=== PATIENT | female | born 1980 | race Caucasian/White ===

== ENCOUNTER 2025-03-27 23:16 | Emergency (ER) | payer OTHER, SELFPAY ==
--- OUTSIDE RECORDS SUMMARY | 2025-03-27 23:18 | XMS_ITS | Clinical Summary ---
Author Organization [facility] [employer] [facility] Address [address] [place] [id number] Care Team Providers Care Audioprosthologist Name Role Phone Elizabeth Malcolm DO Primary Care Provider [phone] Allergies Active Allergy Reactions Criticality Noted Date Comments Sulfa (Sulfonamide Antibiotics) Rash 09/26/2013 Patient reports I turn purple all over Medications multivitamin (MVI) tablet Take 1 tablet by mouth once daily. 0 9 Active ketoconazole 2% topical (NIZORAL) creamIndications:I tching Apply topically to affected area(s) once daily. 60 g 9 Active FLUoxetine (PROZAC) 60 mg tabletIndications: Depression, recurrent,Fibromya lgia Take 1 Tablet (60 mg) by mouth once daily. 90 Tablet 3 4 Active hydroCHLOROthiazid e 25 mg tabletIndications: HTN (hypertension) Take 1 Tablet (25 mg) by mouth once daily. 90 Tablet 3 4 Active amLODIPine (NORVASC) 10 mg tabletIndications: HTN (hypertension) Take 1 Tablet (10 mg) by mouth once daily. 90 Tablet 3 4 Active levonorgestrel-eth inyl estrad, 0.1mg-20mcg, (Vienva) 0.1-20 mg-mcg tabletIndications: Encounter for surveillance of contraceptive pills Take 1 Tablet by mouth once daily. 84 Tablet 3 4 Active Active Problems Problem Noted Date Diagnosed Date Pap smear for cervical cancer screening 07/31/19 23 Overview (07/31/2022): 06/2022 NIL/ HPV negative Plan: Pap/ HPV due 06/2027 HTN (hypertension) 10/30/2019 History of ITP 04/04/2016 Overview (04/04/2016): No problems for >10yrs. Normal platelets with last delivery 02/2015. Migraines 08/14/2014 Fibromyalgia 08/14/2014 Resolved Problems Problem Noted Date Diagnosed Date Resolved Date care, subsequent pr egnancy in first trimester 04/03/2016 03/01/2018 Overview (06/30/2016): MMR after delivery Needs Pap smear at 6wk visit. It's a boy! Spontaneous vaginal delivery 02/18/2015 03/01/2018 37+ weeks gestation completed 02/18/2015 03/01/2018 Chorioamnionitis, delivered, current hospitalization 02/17/2015 03/01/2018 Full-term PROM with onset of labor more than 24 hours after rupture 02/15/2015 03/01/2018 Overview (02/15/2015): remote history of ITP in high school Thrombocytopenia affecting p regnancy, antepartum 02/15/2015 02/15/2015 , normal first 08/01/201402/10 Overview (02/13/2015): It's a girl! TdaP 12/13/14 GBS negative Plans to breastfeed. Wants to try on her own and ask for help if needed. Wants baby taken to warmer initially then to chest. Monitor closely for s/s depression, plan start sertraline in hospital , plan q2wk visits Idiopathic thrombocytopenic purpura (ITP) 07/12/1994 07/12/2004 Immunizations Immunization Administration Dates Next Due Influenza, IIV4 05/31/2022,,03/05/2020,04/03/2019,06/07/2018,,04/03/2016,09/05/2015,05/24/2014,06/23/2013,2011 MMR 10/17/2016 Tdap 08/14/2016,12/13/2014,05/30/2010 ,05/20/2010 Tdap, Unspecified 05/30/2010 Family History Medical History Relation Name Comments Heart Disease Father Heart Disease Maternal Grandfather Diabetes Mother Psychiatric illness Mother Relation Name Status Comments Father Maternal Grandfather Mother Social History Tobacco Use Types Packs/Day Years Used Date Smoking Tobacco: Never Smokeless Tobacco: Never Tobacco Cessation:Counseling Given: Not Answered Alcohol Use Standard Drinks/Week Comments Yes 12 (1 standard drink = 0.6 oz pu re alcohol) PHQ-2 Answer Date Recorded PHQ-2 TOTAL SCORE 2 05/10/2024 Social Connections Answer Date Recorded Do you often feel lonely or isolated from those around you? 4 05/06/2024 Alcohol Use Answer Date Recorded How often do you have a drink containing alcohol ? 4 06/29/2022 How many drinks containing a lcohol do you have on a typical day when you are drinking? 1 06/29/2022 How often do you have five or more drinks on one occasion? 3 06/29/2022 Financial Resource Strain Answer Date R ecorded Difficulty of Paying Living Expenses 2 05/06/2024 Difficulty of Paying Living Expenses 1 05/06/2024 Food Insecurity Answer Date Recorded Do you worry your food will run out before you are able to buy more? 1 05/06/2024 Transportation Needs Answer Date Record ed Does lack of transportation keep you from medica l appointments? 1 05/06/2024 Does lack of transportation keep you from work, meetings or getting things that you need? 1 05/06/2024 Housing Stability Answer Date Recorded What is your housing situation today? 1 05/06/2024 Utilities Answer Date Recorded Do you have trouble paying f or utilities (for example, heat, electricity, water, phone)? 1 05/06/2024 Comments No Sex and Gender Information Value Date Recorded Sex Assigned at Not on file Legal Sex Female 2:57 PM CDT Gender Identity Not on file Sexual Orientation Straight 08/10/2023 3: 57 PM [employer]HOUSE [employer] Obstetrics History Para Term AB IAB SAB Ectopic Multiple Livin g Live Births 2 1 1 2 2 Date Outcome GA Total Labor Labor/2nd/3rd Weight Sex Type Anes PTL Liliya A1 A5 Name Clin F Vag Epidur al N Livin g Complications:Intraamniotic Infection 017 Term 39w 1d Livin g Last Filed Vital Signs Vital Sign Reading Time Taken Comments Blood Pressure 135/85 05/10/2024 2:51 PM CDT Pulse 95 05/10/2024 2:25 PM CDT Temperature 36.6 C (97.9 F) 07/18/2019 10:47 AM [employer]HOUSE [employer] Respiratory Rate 16 11/30/2017 2:23 PM CDT Oxygen Saturation 98% 05/10/2024 2:25 PM CDT Inhaled Oxygen Concentration - - Weight 74.4 kg (164 lb) 05/10/2024 2:25 PM CDT Height 163.8 cm (5' 4.5) 05/10/2024 2:25 PM CDT Body Mass Index 27.72 05/10/2024 2:25 PM CDT Plan of Treatment Health Maintenance Due Date Last Done Comments Hepatitis B series for 19+ (1 of 3 - 19+ 3-dose series) 2001 HPV series for age 9-45 (1 - 3-dose SCDM series) 2009 COVID-19 vaccine series (2023- season) 2025 Influenza Vaccine (#1) 2025 , 06/17/2021, 03/05/2020, Additional history exists BMI (ht and wt on same day) for age 18+ 05/10/2025 05/10/2024, 06/29/2022, 06/17/2021, Additional history exists Depression screening for age 12+ 05/10/2025 05/10/2024, 08/24/2022, 07/13/2022, Additional history exists Tetanus booster 08/14/2026 08/14/2016, 06/0 10/2014, 05/30/2010, Additional history exists Pap test for age 21-65 06/29/2027 , 06/29/2022, 12/02/2016, Additional history exists RSV vaccine for adults or (1 - 1-dose 75+ series) 2057 Hepatitis C screening for age 18-79 Completed 06/18/2014 HIV for age 15-65 Completed 02/23/2019, , 06/18/2014 Pneumococcal series for age 6-49 Aged Out No longer eligible based on patient's age to complete this topic Procedures Procedure Name Priority Date/Time Associated Diagnosis Comments STATE COMPTROLLER THIN PREP PAP SCREEN IMAGED Routine 06/29/2022 3:25 PM [employer]OWERHOUSE [employer] Screening for cervical cancer ANTI HIV 1/2 Add On 02/23/2019 9:27 AM CDT Pruritus ANTI HCV Routine 06/18/2014 9:01 AM POWERHOUSE LAB[employer]ER (HC) from Last 3 Months or Most Recently Relevant to Health Maintenance Results * STATE COMPTROLLER THIN PREP PAP SCREEN IMAGED (06/29/2022 3:25 PM POWERHOUSE LABORER) Case Report Gynecologic Cytology Report Case: [id number] Authorizing Provider: Elizabeth Malcolm DO Collected: 06/29/2022 1525 Ordering Location: [facility] Received: 06/29/2022 1525 Clinic First Screen: Mark Monroe Rescreen: Kathleen Weiss Specimen: STATE COMPTROLLER ThinPrep Vial Screening, Cervical 07/16/2022 12:09 PM POWERHOUSE [employer] [facility] INTERPRETATION/ RESULT NEGATIVE FOR INTRAEPITHELIAL LESION OR MALIGNANCY (NIL) (none) 07/16/2022 12:09 PM POWERHOUSE [employer] [facility] at 1209 POWERHOUSE [employer]ER SPECIMEN ADEQUACY Satisfactory for evaluation Endocervical component present 07/16/2022 12:09 PM P[employer]HOU[employer] [facility] HPV REQUEST HPV and PAP 07/16/2022 12:09 PM P[employer]HOUSE [employer] [facility] Date of LMP 06/25/22 07/16/2022 12:09 PM [employer]HOU[employer] [facility] Last Pap Date 12/02/16 07/16/2022 12:09 PM P[employer]HOU[employer] [facility] Last Pap Result NIL 12:09 PM P[employer]HOU[employer] [facility] Abnormal Pap or [place] Bx in last 5 years No 07/16/2022 12:09 PM P[employer]HOU[employer] [facility] Menstrual Status Regular Periods 07/16/2022 12:09 PM P[employer]HOUSE [employer] [facility] [place] Bx Done Today No 07/16/2022 12:09 PM POWERHOUSE LAB[employer]ER [facility] Additional Information None given 07/16/2022 12:09 PM POWERHOUSE LAB[employer]ER [facility] Comment: Cytology is screened at [facility] - [address], [place] [address] and [facility] - [address] [place] [address], [place] [address] and [facility] - [address] [place] [address] Interpreted at [facility] - [address], [place] [address] Automated Review Successful 07/16/2022 12:09 PM POWERHOUSE LABORER [facility] Comment:Specimen processed s uccessfully by automated foreign law consultant device, ThinPrep Imaging System, [employer] ANCILLARY TESTING STATE COMPTROLLER HPV Ordered, Please see separate report 07/16/2022 12:09 PM POWERHOUSE LAB[employer]ER [facility] Note The pap test is a screening technique, not a diagnostic procedure. It is used primarily to screen for squamous cancers and precursor lesions. Published studies have shown that it is subject to both false negative and false positive results. The pap test should not be used as the sole means to diagnose or exclude pre-malignant and malignant lesions. 07/16/2022 12:09 PM POWERHOUSE LABORER [facility] Other (Cervical) Non-Blood / Unknown 06/29/2022 3:25 PM POWERHOUSE LAB[employer]ER 06/29/2022 3:25 PM POWERHOUSE [employer]ER Elizabeth Malcolm DO PATHOLOGY/CYTOLOGY Final R esult [facility] [address] [place] [address], [place] * ANTI HIV 1/2 (02/23/2019 9:27 AM CDT) HIV-1/HIV-2 ANTIBODY Non-Reacti ve Non-Reacti ve 02/28/2019 10:29 AM CDT [facility] Comment:HIV-1 p24 and HIV-1/ HIV-2 Ab not detected. Blood BLOOD SPECIMEN / Unknown Venipuncture / Unknown 02/23/2019 9:27 AM CDT 02/23/2019 9:27 AM CDT Elizabeth Malcolm DO SEND OUTS Final Resu lt [facility] [address] [place] [address], * ANTI HCV (06/18/2014 9:01 AM POWERHOUSE LABORER) HEPATITIS C ANTIBODY Non-Reacti ve Non-Reacti ve 06/18/2014 2:07 PM POWERHOUSE LABORER [facility] Blood specimen (specimen) BLOOD SPECIMEN / Unknown Venipuncture / Unknown 06/18/2014 9:01 AM POWERHOUSE LABORER 06/18/2014 9:02 AM POWERHOUSE LAB[employer]ER Narrative [facility] - 06/18/2014 2:07 PM POWERHOUSE LABORER Antibodies to HCV not detected; does not exclude the possibility of exposure to HCV. Radhika MCDONALD SEND OUTS Final R esult Performing Organization Address City/[facility]/ZIP Co de Phone Number [facility] 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
[2025-03-27 23:23] VITALS: BP 128/78; PULSE 111; RESP 20; TEMP 37.2; O2SAT 97; BMI 27.5
--- NOTE | 2025-03-27 23:23 | ED.GENADULT ---
HPI - General Adult General Time Seen by Provider: 23:23 Date Seen: 03/27/25 Chief complaint: Abdominal Pain Stated complaint: right side pain Time Seen by Provider: 03/27/25 23:22 Source: patient, RN notes reviewed and old records reviewed Mode of arrival: ambulatory Limitations: no limitations History of Present Illness HPI narrative: 45-year-old female who presents today with ?right side pain?. Says it hurts under entire right side from her chest to her head. This started about an hour and half before coming emergency department. No nausea, vomiting, diarrhea, fevers or chills. No shortness of breath or cough. Denies fall or injury. Did not take anything for this at home including Tylenol or ibuprofen. Related Data Home Medications ?Medication ?Instructions ?Recorded ?Confirmed amlodipine 10 mg tablet 10 mg PO DAILY 04/12/24 04/12/24 fluoxetine 40 mg capsule 40 mg PO QAM 04/12/24 04/12/24 hydrochlorothiazide 25 mg tablet 25 mg PO DAILY 04/12/24 04/12/24 levonorgestrel-ethinyl estradiol 1 tab PO DAILY 04/12/24 04/12/24 0.1 mg-20 mcg tablet Allergies Allergy/AdvReac Type Severity Reaction Status Date / Time Sulfa (Sulfonamide Allergy Verified 03/27/25 23:23 Antibiotics) [facility] Social History Smoking Status: Never smoker Do you use any of these nicotine containing products: None Second hand tobacco smoke exposure: No How often do you have a drink containing alcohol: monthly or less How many standard drinks containing alcohol do you have on a typical day: 1 or 2 How often do you have six or more drinks on one occasion: Less than monthly AUDIT-C Alcohol total score: 2 Non-prescribed substance use: denies use service: No Exam Narrative: Exam Narrative: General: Well-developed and well-nourished, no acute distress Head: Atraumatic and normocephalic Eyes: Pupils are equal reactive, extraocular motions intact, conjunctiva clear ENT: External nose and ears are normal, posterior pharynx without erythema or exudate Neck: No midline cervical tenderness, full spontaneous range of motion the neck, trachea midline, no adenopathy Heart: Tachycardic but regular Lungs: Clear to auscultation bilaterally without wheezes or crackles Abdomen: Soft, nontender, nondistended with active bowel sounds Musculoskeletal: No tenderness, deformity, or edema Neurologic: Awake, alert, and oriented x3, no gross focal neurologic deficits, cranial nerves intact as tested Psych: Mood and affect are appropriate Skin: No rashes Const: Vital Signs, click to edit/add: Vital Signs - 24 hr 03/27/25 23:23 Temperature 99 F Pulse Rate [Pulse Oximeter] 111 H Respiratory Rate 20 Blood Pressure [Ri ght Upper Arm] 128/78 Pulse Oximetry 97 Oxygen Delivery Me thod Room Air Course Course ED Course: Reviewed prior urgent care visit from October 2024 which was for sore throat, fever, body aches, was treated with penicillin for presumed strep strep infection with no testing performed. Care complicated by history of hypertension and alcohol use tonight Patient seen examined, presents today with pain on the right side of her torso started 90 minutes prior to arrival, no treatment home, no associated symptoms. Although she says she has her pain on the entire right side, she is holding her right upper abdomen, no CVA tenderness, no abdominal tenderness. Consider kidney stone, cholelithiasis or acute cholecystitis. Patient is tachycardic, cannot PERC out, D-dimer is ordered. Toradol ordered for pain and will monitor. Imaging will be performed, CT PE study if D-dimer is positive, CT abdomen and pelvis if negative. Reevaluation(s) Time of Reevaluation #1: 00:27 Reevaluation #1: Patient with minimal improvement in pain after Toradol and so Dilaudid was ordered. Labs independently interpreted by me with normal CBC, hypokalemia with potassium 2.9 which will be replaced orally, slightly elevated glucose consistent with patient with recent oral intake, AST, ALT slightly elevated, normal lipase. Time of Reevaluation #2: 01:05 Reevaluation #2: Labs independently interpreted by me with negative D-dimer, CT abdomen and pelvis is ordered and pending. Time of Reevaluation #3: 01:22 Reevaluation #3: CT abdomen and pelvis with gastric distension, no evidence for acute cholecystitis or other acute intra-abdominal or intrathoracic findings. IMPRESSION: No acute intra-abdominal/pelvic abnormality, including CT evidence of acute cholecystitis, obstructive uropathy, or appendicitis. Vital Signs Vital signs: Initial Vital Signs Temperature 99 F 03/27/25 23:23 Temperature Source Temporal Artery Scan 03/27/25 23:23 Pulse Rate 111 H 03/27/25 23:23 Pulse Rhythm Regular 03/27/25 23:23 Respiratory Rate 20 03/27/25 23:23 Blood Pressure 128/78 03/27/25 23:23 Blood Pressure Mean 94 03/27/25 23:23 Blood Pressure Position Sitting 03/27/25 23:23 Pulse Oximetry 97 03/27/25 23:23 Oxygen Delivery Method Room Air 03/27/25 23:23 Vital Signs Temperature 99 F 03/27/25 23:23 Pulse Rate 111 H 03/27/25 23:23 Respiratory Rate 20 03/27/25 23:23 Blood Pressure 128/78 03/27/25 23:23 Pulse Oximetry 97 03/27/25 23:23 Oxygen Delivery Method Room Air 03/27/25 23:23 Temperature 99 F 03/27/25 23:23 Pulse Rate 111 H 03/27/25 23:23 Respiratory Rate 20 03/27/25 23:23 Blood Pressure 128/78 03/27/25 23:23 Pulse Oximetry 97 03/27/25 23:23 Oxygen Delivery Method Room Air 03/27/25 23:23 Medications Administered Medications: Discontinued Medications Generic Name Dose Route Start Last Admin Trade Name Freq PRN Reason Stop Dose Admin Hydromorphone HCl 0.5 mg 03/28/25 00:17 03/28/25 00:20 Hydromorphone 0.5 Mg/0.5 Ml Inj IVP 03/28/25 00:18 0.5 mg ONCE ONE Administration Sodium Chloride 1,000 mls @ 1,000 mls/hr 03/27/25 23:45 03/27/25 23:58 0.9 % Sodium Chloride 1000 Ml IV 03/28/25 00:44 1,000 mls/hr .Q1H ALISON Administration Potassium Chloride 10 meq in 100 mls @ 100 mls/hr 03/28/25 00:28 03/28/25 00:45 Potassium Chloride IVPB 03/28/25 01:27 100 mls/hr ONCE ONE Administration Ketorolac Tromethamine 15 mg 03/27/25 23:40 03/27/25 23:57 Ketorolac 15 Mg/Ml Inj IVP 03/27/25 23:41 15 mg ONCE ONE Administration Potassium Bicarbonate 25 meq 03/28/25 00:28 03/28/25 00:40 Potassium Bicarb 25 Meq Effervescent Tab PO 03/28/25 00:29 25 meq ONCE ONE Administration Medical Decision Making Lab Data Labs: Lab Results 03/27/25 03/27/25 03/27/25 Range/Units 23:32 23:33 23:55 WBC 10.76 (4.50-11.00) K/uL RBC 4.34 (4.00-5.20) m/uL Hgb 14.3 (12.0-16.0) gm/dL Hct 40.8 (33.0-51.0) % MCV 94 (80-100) fL MCH 33 (26-34) pg MCHC 35 (32-36) gm/dL RDW Coeff of Candida 11.9 (11.5-15.5) % Plt Count 363 (140-440) K/uL Neut % (Auto) 68.6 (42.0-72.0) % Lymph % (Auto) 22.8 (20-44) % Forrest % (Auto) 7.0 (0.0-11.0) % Eos % (Auto) 0.8 (0.0-7.0) % Baso % (Auto) 0.1 (0.0-3.0) % Neut # (Auto) 7.38 H (1.7-7.0) K/uL Lymph # (Auto) 2.45 (0.90-2.90) K/uL Forrest # (Auto) 0.80 (0.00-0.90) K/UL Eos # (Auto) 0.09 (0.00-0.50) K/uL Baso # (Auto) 0.01 (0.00-0.30) K/uL Abs Immat Gran (auto) 0.08 (0.00-0.30) K/uL Imm/Tot Granulo (auto) 0.7 % D-Dimer Quant (PE/DVT) < 0.27 (0.00-0.50) ug/ml Sodium 137 (135-149) mmol/L Potassium 2.9 L* (3.6-5.1) mmol/L Chloride 95 L (96-114) mmol/L Carbon Dioxide 26 (20-32) mmol/L Anion Gap 16 H (7-15) mEq/L BUN 8 (5-24) mg/dL Creatinine 0.7 (0.5-1.5) mg/dL Estimated Creat Clear 89.48 Estimated GFR 110 ml/min Glucose 131 H (60-115) mg/dL Calcium 9.9 (8.4-10.6) mg/dL Magnesium 1.9 (1.5-2.6) mg/dL Total Bilirubin 0.7 (0.1-1.5) mg/dL Direct Bilirubin 0.2 (0.0-0.5) mg/dL AST 50 H (12-35) U/L ALT 54 H (4-35) U/L Alkaline Phosphatase 54 (40-150) U/L Total Protein 8.4 H (6.0-8.3) g/dL Albumin 4.9 (3.3-5.0) g/dL Lipase 249 (23-300) U/L Urine Color Yellow (Yellow) Urine Appearance Cloudy A (Clear) Urine pH 7.0 (5.0-8.5) Ur Specific [place] 1.015 (1.000-1.030) Urine Protein Negative (Negative) Urine Glucose (UA) Negative (Negative) Urine Ketones Negative (Negative) Urine Blood Trace-intact A (Negative) Urine Nitrite Negative (Negative) Urine Bilirubin Negative (Negative) Urine Urobilinogen 0.2 (0.2-1.0) Ur Leukocyte Esterase 2+ A (Negative) Urine RBC 0-2 (0-2) Urine WBC 2-5 (0-5) Ur Squamous Epith Cells Moderate A (None-Few) Amorphous Sediment Few A (None) Urine Bacteria Many A (None) Urine HCG, Qual Negative (Negative) Discharge Plan Discharge Clinical Impression: Right-sided chest pain, Right lateral abdominal pain Patient Disposition: Home, Self-Care Condition: Stable Instructions: Chest Pain (DC), Abdominal Pain (ED) Additional Instructions: No definite source for your pain is found today. There is no evidence of blood clot, pneumonia, gallbladder or kidney disease. The stomach is very distended which may indicate some inflammation in the 1st part of the intestine. Liquid diet for 24 hours, take Tylenol as needed for pain and oxycodone for more severe pain. Follow-up with your primary care doctor in 2-3 days if not better. Your liver tests are slightly elevated and should be rechecked. Activity Level: No Restrictions Discharge Diet: Full Liquid Prescriptions: No Action hydrochlorothiazide 25 mg tablet 25 mg PO DAILY amlodipine 10 mg tablet 10 mg PO DAILY levonorgestrel-ethinyl estrad 0.1-20 mg-mcg tablet 1 tab PO DAILY fluoxetine 40 mg capsule 40 mg PO QAM Follow Up/Referrals: Elizabeth Malcolm DO [Primary Care Provider, Family Practice] Stand Alone Forms: [facility] Info Instructions
[2025-03-27 23:37] LABS: Appearance Urine Cloudy (Clear)
[2025-03-27 23:47] LABS: Ur HCG Qualitative* Negative (Negative)
[2025-03-28 00:11] LABS: Hematocrit* 40.8 % (33.0-51.0); Hemoglobin* 14.3 gm/dL (12.0-16.0); Immature Granulocytes Abs Auto 0.08 K/uL (0.00-0.30); Immature Granulocytes Pct Auto 0.7 %; Lymphocytes Absolute Auto 2.45 K/uL (0.90-2.90); Mean Corpuscular HGB Conc 35 gm/dL (32-36); Mean Corpuscular Hemoglobin 33 pg (26-34); Mean Corpuscular Volume 94 fL (80-100); RDW Coefficient of Variation % 11.9 % (11.5-15.5); Red Blood Count* 4.34 m/uL (4.00-5.20); White Blood Count* 10.76 K/uL (4.50-11.00)
[2025-03-28 00:13] LABS: Slide Review Reflex No
[2025-03-28 00:20] LABS: Albumin* 4.9 g/dL (3.3-5.0)
[2025-03-28 00:21] LABS: Chloride* 95 mmol/L (96-114); Sodium* 137 mmol/L (135-149)
[2025-03-28 00:23] LABS: Alanine Aminotransferase* 54 U/L (4-35); Alkaline Phosphatase* 54 U/L (40-150); Anion Gap 16 mEq/L (7-15); Aspartate Amino Transferase* 50 U/L (12-35); Bilirubin Direct* 0.2 mg/dL (0.0-0.5); Bilirubin Total* 0.7 mg/dL (0.1-1.5); Blood Urea Nitrogen* 8 mg/dL (5-24); Carbon Dioxide* 26 mmol/L (20-32); Creatinine* 0.7 mg/dL (0.5-1.5); Est. Creatinine Clearance* 89.48; Estimated Glomerular Filt Rate 110 ml/min; Total Protein* 8.4 g/dL (6.0-8.3)
[2025-03-28 00:24] LABS: Calcium* 9.9 mg/dL (8.4-10.6); Glucose* 131 mg/dL (60-115)
[2025-03-28 00:26] LABS: Potassium* 2.9 mmol/L (3.6-5.1)
[2025-03-28] MEDS: POTASSIUM BICARB 25 MEQ EFFERVESCENT TAB PO (00:40)
[2025-03-28 00:44] LABS: D Dimer Quantitative* < 0.27 ug/ml (0.00-0.50)
[2025-03-28] MEDS: POTASSIUM CHLORIDE 10 MEQ/100 ML PIGGYBACK 100 MEQ IVPB (00:45)
--- NOTE | 2025-03-28 00:48 | CRLHL7_ITS ---
For Patients: As a result of the Century Cures Act, medical imaging exams and procedure reports are released immediately into your electronic medical record. You may view this report before your referring provider. If you have questions, please contact your health care provider. INDICATION: Right upper quadrant/right flank pain. TECHNIQUE: CT abdomen and pelvis acquired with 79 cc Omnipaque 350 IV contrast. COMPARISON: None. FINDINGS: Lower chest: Unremarkable. Liver: Unremarkable. Normal in size and attenuation. No suspicious masses. Gallbladder and bile ducts: Unremarkable. No stones or inflammation. No biliary dilatation. Pancreas: Unremarkable. No mass or inflammation. Spleen: Unremarkable. Normal in size. No masses. Adrenal glands: Unremarkable. No nodules. Kidneys: Right superior pole simple renal cyst. No suspicious masses, stones, or hydronephrosis. GI tract: Unremarkable. Normal in caliber. No sign of mass or inflammation. Normal appendix. Vasculature: Abdominal aorta is normal in caliber. Mesenteric arteries are patent. Lymph nodes: No lymphadenopathy. Peritoneum/Abdominal Wall: Unremarkable. No sign of mass or infiltration. No free air or significant free fluid. Pelvis: Unremarkable. Bones: Unremarkable for age. IMPRESSION: No acute intra-abdominal/pelvic abnormality, including CT evidence of acute cholecystitis, obstructive uropathy, or appendicitis. Please note that all CT scans at this facility use dose modulation, iterative reconstruction, and/or weight-based dosing when appropriate to reduce radiation dose to as low as reasonably achievable. Dictated by Juan Morfin MD @ 03/28/2025 1:32:25 AM (Electronically Signed)
--- OUTSIDE RECORDS SUMMARY | 2025-03-28 01:08 | XMS_ITS | Clinical Summary ---
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 Obstetrics History Para Term AB IAB SAB [...] 36.6 C (97.9 F) 07/18/2019 10:47 AM WAVE SOLDER OFFBEARER Respiratory Rate 16 11/30/2017 2:23 PM CDT [...] Procedure Name Priority Date/Time Associated Diagnosis Comments FINANCIAL SYSTEMS ADMINISTRATOR THIN PREP PAP SCREEN IMAGED Routine 06/29/2022 3:25 PM [employer]AVE [employer]DER OFFBEARER Screening for cervical cancer ANTI HIV 1/2 Add On 02/23/2019 9:27 AM CDT Pruritus ANTI HCV Routine 06/18/2014 9:01 AM WAVE SOLDER OFFBEARER (HC) from Last 3 Months or Most Recently Relevant to Health Maintenance Results * FINANCIAL SYSTEMS ADMINISTRATOR THIN PREP PAP SCREEN IMAGED (06/29/2022 3:25 PM WAVE SOLDER OFFBEARER) Case Report Gynecologic Cytology Report Case: [id number] Authorizing Provider: Elizabeth Malcolm DO Collected: 06/29/2022 1525 Ordering Location: [facility] Received: 06/29/2022 1525 Clinic First Screen: Mark Monroe Rescreen: Kathleen Weiss Specimen: FINANCIAL SYSTEMS ADMINISTRATOR ThinPrep Vial Screening, Cervical 07/16/2022 12:09 PM [facility] [facility] INTERPRETATION/ RESULT NEGATIVE FOR INTRAEPITHELIAL LESION OR MALIGNANCY (NIL) (none) 07/16/2022 12:09 PM WAVE SOLDER OFFBEARER [facility] at 1209 WAVE SOLDER OFFBEARER SPECIMEN ADEQUACY Satisfactory for evaluation Endocervical component present 07/16/2022 12:09 PM [employer]AVE [employer]DER OFFBEAR[employer] [facility] HPV REQUEST HPV and PAP 07/16/2022 12:09 PM WAVE [employer]DER OFFBEAR[employer] [facility] Date of LMP 06/25/22 07/16/2022 12:09 PM WAVE [employer]DER OFFBEAR[employer] [facility] Last Pap Date 12/02/16 07/16/2022 12:09 PM [facility] [facility] Last Pap Result NIL 12:09 PM WAVE [employer]DER OFFBEAR[employer] [facility] Abnormal Pap or [place] Bx in last 5 years No 07/16/2022 12:09 PM W[employer]DER OFFBEAR[employer] [facility] Menstrual Status Regular Periods 07/16/2022 12:09 PM WAVE [employer]DER OFFBEAR[employer] [facility] [place] Bx Done Today No 07/16/2022 12:09 PM WAVE SOLDER OFFBEARER [facility] Additional Information None given 07/16/2022 12:09 PM WAVE SOLDER OFFBEARER [facility] Comment: Cytology is screened at [facility] - [address], [place] [address] and [facility] - [address] [place] [address], [place] [address] and [facility] - [address] [place] [address] Interpreted at [facility] - [address], [place] [address] Automated Review Successful 07/16/2022 12:09 PM WAVE SOLDER OFFBEARER [facility] Comment:Specimen processed s uccessfully by automated senior wind turbine technician device, ThinPrep Imaging System, [employer] ANCILLARY TESTING FINANCIAL SYSTEMS ADMINISTRATOR HPV Ordered, Please see separate report 07/16/2022 12:09 PM WAVE SOLDER OFFBEARER [facility] Note The pap test is a screening technique, not a diagnostic procedure. It is used primarily to screen for squamous cancers and precursor lesions. Published studies have shown that it is subject to both false negative and false positive results. The pap test should not be used as the sole means to diagnose or exclude pre-malignant and malignant lesions. 07/16/2022 12:09 PM WAVE SOLDER OFFBEARER [facility] Other (Cervical) Non-Blood / Unknown 06/29/2022 3:25 PM WAVE SOLDER OFFBEARER 06/29/2022 3:25 PM WAVE SOLDER OFFBEARER Elizabeth Malcolm DO PATHOLOGY/CYTOLOGY Final R esult [facility] [address] [place] [address], [place] * ANTI HIV 1/2 (02/23/2019 9:27 AM CDT) HIV-1/HIV-2 ANTIBODY Non-Reacti ve Non-Reacti ve 02/28/2019 10:29 AM CDT [facility] Comment:HIV-1 p24 and HIV-1/ HIV-2 Ab not detected. Blood BLOOD SPECIMEN / Unknown Venipuncture / Unknown 02/23/2019 9:27 AM CDT 02/23/2019 9:27 AM CDT Elizabeth Malcolm DO SEND OUTS Final Resu lt [facility] [address] [place] [address], * ANTI HCV (06/18/2014 9:01 AM WAVE SOLDER OFFBEARER) HEPATITIS C ANTIBODY Non-Reacti ve Non-Reacti ve 06/18/2014 2:07 PM WAVE SOLDER OFFBEARER [facility] Blood specimen (specimen) BLOOD SPECIMEN / Unknown Venipuncture / Unknown 06/18/2014 9:01 AM WAVE SOLDER OFFBEARER 06/18/2014 9:02 AM WAVE SOLDER OFFBEARER Narrative [facility] - 06/18/2014 2:07 PM WAVE SOLDER OFFBEARER Antibodies to HCV not detected; does not exclude the possibility of exposure to HCV. Radhika MCDONALD SEND OUTS Final R esult Performing Organization Address City/[facility]/ZIP Co de Phone Number [facility] 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
[2025-03-28 02:21] VITALS: BP 105/66; PULSE 98; RESP 18
== END 2025-03-28 02:23 | disposition home or self-care (01) ==
PROVIDERS: Emergency Provider Family Medicine; PCP Family Medicine
DX: R07.89 Other chest pain (principal); R10.9 Unspecified abdominal pain
CPT/HCPCS: 36415; 74177; 80048; 80076; 81001; 81025; 83690; 83735; 85025; 85379; 87086; 96365; 96375; 99284; 99285; A9270; J1171; J1885; J3480; J7030; Q9967